=== PATIENT | female | born 1995 | race Caucasian/White ===

== ENCOUNTER 2024-10-23 13:57 | Outpatient (CLI) | payer MEDICAID, SELFPAY ==
[2024-10-28 14:58] LABS: HPV Source Cervix; HPV, High Risk by TMA Not Detected
== END 2024-10-23 13:58 | disposition home or self-care (01) ==
PROVIDERS: Visit Provider Physician Assistant
DX: N89.8 Other specified noninflammatory disorders of vagina (principal); R35.0 Frequency of micturition; Z12.4 Encounter for screening for malignant neoplasm of cervix
CPT/HCPCS: 80061; 82947; 87086; 87624; 87625; 88141; 88142

== ENCOUNTER 2024-10-30 07:50 | Outpatient (CLI) | payer MEDICAID, SELFPAY | END 2024-10-30 07:51 | disposition home or self-care (01) | LOC: NFLDREF 11-12 04:20 | PROVIDERS: Visit Provider Physician Assistant | DX: Z13.1 Encounter for screening for diabetes mellitus (principal); Z13.220 Encounter for screening for lipoid disorders | CPT/HCPCS: 80061; 82947 ==

== ENCOUNTER 2024-12-25 08:09 | Outpatient (CLI) | payer OTHER, SELFPAY ==
--- NOTE | 2024-12-25 08:15 | CRLHL7_ITS ---
For Patients: As a result of the Century Cures Act, medical imaging exams and procedure reports are released immediately into your electronic medical record. You may view this report before your referring provider. If you have questions, please contact your health care provider. OB ULTRASOUND LESS THAN 14 WEEKS, 12/25/2024 CLINICAL HISTORY: Dating, viability. COMPARISON: None. TECHNIQUE: Real time mahoney scale imaging of the fetus was performed transvaginally. FINDINGS: LMP: 10/25/2024. AURELIO by LMP: 08/01/2025. GA: 8 weeks 5 days. CRL: 2.1 cm, 8 weeks 5 days. AURELIO 08/01/2025. FHR: 176 bpm. GEST SAC: 3.7 cm, appears within normal limits. YOLK SAC: 3.5 mm, appears within normal limits. RIGHT OVARY: 3.5 x 2.1 x 3.1 cm, within normal limits. CL. LEFT OVARY: 3.3 x 1.9 x 1.9 cm, within normal limits. IMPRESSION: 1. Sonographic gestational age 8 weeks 5 days and sonographic due date 08/01/2025. 2. Subchorionic hemorrhage is present measuring 7 x 3 x 20 mm. Dale Lindsay M.D. Diagnostic Radiologist [email or web address] Transcribed: 11:15 am DW/Dictated by: Dale Lindsay MD @ 12/25/2024 10:05:00 AM (Electronically Signed)
== END 2024-12-25 08:10 | disposition home or self-care (01) ==
LOC: US 08:11
PROVIDERS: Visit Provider Physician Assistant
DX: Z34.91 Encounter for supervision of normal pregnancy, unspecified, first trimester (principal); O20.9 Hemorrhage in early pregnancy, unspecified; Z3A.08 8 weeks gestation of pregnancy
CPT/HCPCS: 76817; 83021; 86592; 86703; 86704; 86706; 86762; 86787; 86803; 86850; 86900; 86901; 87086; 87340; 87491; 87591

== ENCOUNTER 2024-12-25 09:34 | Outpatient (CLI) | payer OTHER, SELFPAY ==
[2024-12-25 13:35] LABS: Chlamydia DNA Amplified* NOT DETECTED (No Detected); GC DNA Amplified* NOT DETECTED (No Detected)
== END 2024-12-25 09:35 | disposition home or self-care (01) ==
PROVIDERS: Visit Provider Physician Assistant
DX: Z34.81 Encounter for supervision of other normal pregnancy, first trimester (principal); Z67.10 Type A blood, Rh positive
CPT/HCPCS: 83020; 83021; 85660; 86592; 86703; 86704; 86706; 86762; 86787; 86803; 86850; 86900; 86901; 87086; 87340; 87491; 87591

== ENCOUNTER 2025-03-17 12:49 | Outpatient (CLI) | payer OTHER, SELFPAY ==
--- NOTE | 2025-03-17 13:00 | CRLHL7_ITS ---
For Patients: As a result of the Century Cures Act, medical imaging exams and procedure reports are released immediately into your electronic medical record. You may view this report before your referring provider. If you have questions, please contact your health care provider. OB ULTRASOUND SURVEY LMP: 10/25/2024. AURELIO by LMP: 08/01/2025. GA: 20 w, 3 d. INDICATION: anatomic survey. TECHNIQUE: Real time mahoney scale imaging of the fetus was performed. Transabdominal. position: Breech. Cervix: Visualized. Technique: Transabdominal. Length of closed cervix: 3.0 cm. Placenta/cord: Anterior. Technique: Transabdominal. Placenta tip to internal OS: 3.9 cm. Umbilical Cord: 3-vessel cord. Amniotic Fluid: 3.3 cm SDP (greater than/equal to: 2- less than 8 cm). SURVEY: Observed Structures. Calvarium/Spine: Cerebellum: 2.1 cm, 20 w 6 d. Cisterna Magna: 6.1 mm. Nuchal Fold: 4.9 mm. Lateral Ventricle: -. CSP: Yes. Midline Falx: Yes. Choroid Plexus: Yes. Spine: Yes. Abdomen: Stomach: Yes. Abd Cord Insertion: Yes. Urinary Bladder: Yes. Kidneys: Yes. Diaphragm: Yes. Face: Nose/lips: Yes. Orbital view: Yes. Profile: Yes. Limbs: Upper Extremities: Yes. Lower Extremities: Yes. Hands: Yes. Feet: Yes. Vascular: 4-Chamber Heart: Yes. LVOT: Yes. RVOT: Yes. 3VV: Yes. 3VTV: Yes. BPD: 4.6 cm. 20 w, 0 d, 30.2 percent. HC: 17.7 cm. 20 w, 1 d, 31.3 percent. AC: 15.7 cm. 20 w, 6 d, 56.6 percent. FL: 3.4 cm. 20 w, 4 d, 46.8 percent. FL/AC ratio: 21.5 percent. HC/AC ratio: 1.1. heart rate: 150 bpm. age by this US: 20 w, 3 d. AURELIO by this US: 08/01/2025. EFW: 366.1 g. Weight: - lbs, 13 oz. Percentile by AURELIO: 56.2 percent. IMPRESSION: 1. Concordance of clinical and sonographic dating. 2. The nasal bone measures 4.6 mm which is at the lower limits of normal. Maternal medicine level 2 evaluation recommended. 3. The renal pelvis measures 2.8 mL on the left and 3.3 mm on the right which is considered within normal limits. 4. Prominent vascularity deep to the placenta at the placenta uterine interface. Again, this should be followed up with maternal medicine. 5. Remainder of the anatomic survey normal. Dale Lindsay M.D. Diagnostic Radiologist [email or web address] DSM/santos JR/Dictated by: Dale Lindsay MD @ 03/17/2025 10:18:00 PM (Electronically Signed)
== END 2025-03-17 12:50 | disposition home or self-care (01) ==
LOC: US 12:49
PROVIDERS: Visit Provider Obstetrics & Gynecology
DX: Z34.92 Encounter for supervision of normal pregnancy, unspecified, second trimester (principal); O35.9XX0 Maternal care for (suspected) fetal abnormality and damage, unspecified, not applicable or unspecified; Z3A.20 20 weeks gestation of pregnancy
CPT/HCPCS: 76805

== ENCOUNTER 2025-05-12 08:31 | Outpatient (CLI) | payer OTHER, SELFPAY | END 2025-05-12 08:32 | disposition home or self-care (01) | LOC: NFLDREF 05-15 07:00 | PROVIDERS: Visit Provider Obstetrics & Gynecology | DX: Z34.83 Encounter for supervision of other normal pregnancy, third trimester (principal) | CPT/HCPCS: 86592 ==

== ENCOUNTER 2025-06-25 09:35 | Outpatient (CLI) | payer OTHER, SELFPAY | END 2025-06-25 09:36 | disposition home or self-care (01) | LOC: NFLDREF 06-30 07:15 | PROVIDERS: Referring Provider Obstetrics & Gynecology; Visit Provider Obstetrics & Gynecology | DX: D50.9 Iron deficiency anemia, unspecified (principal); Z34.93 Encounter for supervision of normal pregnancy, unspecified, third trimester | CPT/HCPCS: 82728 ==

== ENCOUNTER 2025-07-09 10:16 | Outpatient (CLI) | payer OTHER, SELFPAY ==
[2025-07-10 11:12] LABS: Strep B DNA Probe Negative (Negative)
[2025-07-10 12:52] LABS: Strep B Susceptibility Needed? No
== END 2025-07-09 10:17 | disposition home or self-care (01) ==
LOC: NFLDREF 10:17
PROVIDERS: Visit Provider Physician Assistant
DX: Z34.93 Encounter for supervision of normal pregnancy, unspecified, third trimester (principal)
CPT/HCPCS: 87081; 87653

== ENCOUNTER 2025-07-30 05:32 | Inpatient (IN) | payer OTHER, SELFPAY ==
[2025-07-30] VITALS (39 sets, daily range): BP systolic 98–127; BP diastolic 55–79; PULSE 64–95; RESP 16; TEMP 36.4–36.7; O2SAT 87–100; BMI 25.7
[2025-07-30 06:18] LABS: Hematocrit* 33.8 % (33.0-51.0); Hemoglobin* 11.3 gm/dL (12.0-16.0); Immature Granulocytes Abs Auto 0.02 K/uL (0.00-0.30); Immature Granulocytes Pct Auto 0.2 %; Mean Corpuscular HGB Conc 33 gm/dL (32-36); Mean Corpuscular Hemoglobin 30 pg (26-34); Mean Corpuscular Volume 90 fL (80-100); RDW Coefficient of Variation % 13.3 % (11.5-15.5); Red Blood Count* 3.75 m/uL (4.00-5.20); White Blood Count* 10.54 K/uL (4.50-11.00)
[2025-07-30 06:25] LABS: Lymphocytes Absolute Auto 1.00 K/uL (0.90-2.90); Slide Review Reflex No
[2025-07-30] MEDS: LACTATED RINGERS 1000 ML 1,000 ML 999 ML IV ×2 (08:13→09:19)
[2025-07-30] MEDS: ROPIVACAINE 0.2% 100 ml 100 ML 12 MG EPIDURAL (09:20)
[2025-07-30] MEDS: LIDOCAINE 2% (PF) 5 ML VIAL EPIDURAL (09:20)
--- NOTE | 2025-07-30 09:59 | PM.ANBPRC ---
[facility] Medical History Hyperlipidemia ?E78.5 - Hyperlipidemia, unspecified (ICD-10) Presence of Mirena IUD ?Z97.5 - Presence of (intrauterine) contraceptive device (ICD-10) History of vaginal delivery Family History Father Heart disease High cholesterol Mother High blood pressure Social History (Updated 07/16/25 @ 09:45 by Kenyatta Diaz MD) Narrative: Lives in [place] with and son. Occupation: Director of daily operations. Marital status: . Spiritism/cultural needs: no. Chemical or radiation exposure: no. Pre- tobacco use: no. Pre- alcohol use: no. Current tobacco use: no. Current alcohol use: no. Recreational drug use: no. Dietary restrictions: no. Blood transfusion acceptable in an emergency: yes. PSYCHOSOCIAL HISTORY: History of depression or currently depressed: Denies. Current or past physical, emotional, or sexual mistreatment: Denies. Problems that will make it hard to make it to appointments: Denies. What is your current living situation?: I presently have a place to live Problems where you live: no known problems In the past 12 months, utilities in danger of being shut off: no In past 12 months, lack of transportation kept you from medical appts, meetings, work, or getting things needed for daily living: no In the past 12 mos, have been you worried that your food would run out before you had money to buy more?: never true In the past 12 mos, the food you bought just didn't last and you didn't have money to buy more?: never true Smoking Status: Former smoker How often does anyone, including family, friends and others, physically hurt you: never How often does anyone, including family, friends and others, insult or talk down to you: never How often does anyone, including family, friends and others, threaten you with harm: never How often does anyone, including family, friends and others, scream or curse at you: never Meds Home Medications and Allergies Home Medications ?Medication ?Instructions ?Recorded ?Confirmed ?Type 40-iron fum 27 mg 1 cap PO 11/10/24 07/29/25 History iron-folic acid 800 mcg-dha 250 mg capsule ( Multi-DHA (algal oil)) ferrous sulfate 325 mg (65 mg 325 mg PO QMWF #30 tabs 05/12/25 07/30/25 Rx iron) tablet Allergies Allergy/AdvReac Type Severity Reaction Status Date / Time No Known Drug Allergies Allergy Verified 07/29/25 10:10 Results Labs Labs: Laboratory Results - last 24 hr 07/30/25 06:11 WBC 10.54 RBC 3.75 L Hgb 11.3 L Hct 33.8 MCV 90 MCH 30 MCHC 33 RDW Coeff of Hang 13.3 Plt Count 171 Neut % (Auto) 83.6 H Lymph % (Auto) 9.7 L Lipscomb % (Auto) 6.1 Eos % (Auto) 0.3 Baso % (Auto) 0.1 Neut # (Auto) 8.80 H Lymph # (Auto) 1.00 Lipscomb # (Auto) 0.60 Eos # (Auto) 0.03 Baso # (Auto) 0.01 Abs Immat Gran (auto) 0.02 Imm/Tot Granulo (auto) 0.2 Blood Type A Positive Antibody Screen NEGATIVE Vital Signs Vital Signs: Last Vital Signs Temp 97.9 F 07/30/25 08:15 Pulse 70 07/30/25 09:58 Resp 16 07/30/25 04:38 BP 119/74 07/30/25 09:58 Pulse Ox 93 07/30/25 09:55 Weight: 68.039 kg Height: 162.56 cm Anesthesia Procedures Epidural Insertion Patient Location: OB Start Time: 09:15 Stop Time: 09:50 Start Date: 07/30/25 Stop Date: 07/30/25 Reason for Block: procedure for pain Patient Position: sitting Performed By: Parul Graham Preanesthetic Checklist: IV checked, site marked, risks and benefits discussed, monitors and equipment checked, pre-op evaluation, timeout performed and anesthesia consent Prep: chlorhexidine gluconate Monitoring: blood pressure monitoring, continuous pulse oximetry and heart rate Approach: midline Vertebral Space: lumbar (1-5) Epidural Technique: JOSE GUADALUPE saline Needle Type: Tuohy needle Injection Technique: continuous catheter Needle gauge: 17 Needle Length (cm): 10 cm Needle Insertion Depth (cm): 5 Catheter Gauge: 19 Catheter Type: multi-orifice Catheter at skin depth (cm): 14 Test Dose Result: negative and lidocaine 1.5% with epinephrine 1 to 200,000
[2025-07-30] MEDS: OXYTOCIN 30 unit/500 ML in NS 30 UNIT/500 ML BAG 300 UNIT IVPB (12:17)
--- NOTE | 2025-07-30 12:34 | P.LDBA_ITS ---
Subjective History of Present Illness Date Seen: 07/30/25 Narrative: Patient is being admitted to Labor and Delivery for spontaneous labor. She is a 30 year old at 39.5 weeks gestation. Her full history and physical was dictated by Dr. Diaz on 07/16. Please see this for details. She presented at 4cm/75%/-2. Membrane intact. Regular, painful contractions every Q 2-3 minutes. Specific Issues/Plans Partner: Sami H&P: 07/16 Dr. Diaz Son RJ, 5 yo # Sister has a child with Down Syndrome - NIPT recommended, drawn 03/17: low risk for aneuploidy #?Prominent vascularity at uteroplacental interface on tech report - f/u radiology read. No RF for PAS. # CF carrier identified on [place] - pt notified via phone on 04/13 - assessment is low risk - considering this as her last baby - IUD # Hep B non-immune - s/p Booster 02/19 # anemia, hemoglobin 9.8 at 28 weeks Ferrous sulfate 325 mg QOD Repeat at 34 weeks: 10.3, continue oral iron Imaging: - f/u radiology read. Visualized anatomy normal aside from hypoplastic nasal bone. EFW 56%ile - BPD 30%ile, HC 31%ile, AC 57%ile, FL 47%ile. Cx 3.0cm. Anterior placenta, no previa/LL, 3 vessel cord. SDP 3.3cm. Level II: EFW 45%tile, AC 46%tile. SDP 6.1 cm. Li at 25 weeks 3 days gestation age by LMP consistent with 8 week ultrasound. No anomalies commonly detected by ultrasound were identified in the detailed anatomy survey. Growth parameters an estimated weight were consistent. The amniotic fluid volume appeared normal. On trans abdominal imaging, the c ervix appeared long and closed. 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 Patient requested AROM after epidural - CNRA notified that patient desires epidural - Cat I strip OB Exam Physical Exam Vital signs: Temp Pulse Resp BP Pulse Ox 98 F 77 16 110/63 93 07/30/25 10:19 07/30/25 12:19 07/30/25 04:38 07/30/25 12:19 07/30/25 09:55 Narrative: Physical exam: General: No acute distress Psych: Alert and oriented x3, full affect HEENT: Normocephalic, atraumatic Lungs: Unlabored breathing Neuro: No focal deficit. Mentating appropriately Pelvic exam: 6/90/-1, soft, anterior
--- NOTE | 2025-07-30 12:35 | W.PM.VAGDEL1 ---
Procedure Delivery date: 07/30/25 Procedure Done: Global Narrative: The patient is a 30 year-old admitted on 07/30/25 at 39 and 5/7 weeks gestation for spontaneous labor. GBS negative Labor Analgesia: Epidural Pitocin: Only for active 3rd stage management SROM: 07/30 at 0958, with copious amount of clear fluid Complete: 07/30 at 1107 Pushin/16 at 1114 heart tones during second stage were II with variable decelerations during pushing with spontaneous recovery with cessation of pushing. Moderate variability throughout. At 1213 a viable female infant delivered in vertex OA presentation over intact via spontaneous vaginal delivery. The 's body was delivered in the usual manner without difficulty. The was placed on maternal abdomen. The cord was clamped and cut after a 30-60 second delay. The nose and mouth were bulb suctioned. weight: 3530 g. 9 at 1 minute and 9 at 5 minutes. Shoulder dystocia: No. Nuchal cord: No Placenta delivered spontaneously and complete at 1218 with a 3-vessel cord. Placenta examined and noted to be complete. Placenta was not sent to pathology. The cervix and vagina were inspected for lacerations. Laceration(s): 2nd degree, repaired with 2-0 Vicryl in continue manner Complications: None Estimated blood loss: 100 cc Notably, patient had 1300 cc of amniotic fluid expressed during pushing delivery. Sponge and needles counts are correct. Mother and were stable at the time of this note.
[2025-07-30] MEDS: CALCIUM CARBONATE 500 MG CHEW PO (20:22)
[2025-07-31 00:08] VITALS: BP 118/68; PULSE 61; RESP 16; TEMP 36.8; O2SAT 98
[2025-07-31] MEDS: ACETAMINOPHEN 500 MG TABLET 1000 MG PO (00:18)
[2025-07-31 03:59] VITALS: BP 129/76; PULSE 58; RESP 16; TEMP 36.6; O2SAT 97
[2025-07-31 06:31] LABS: Hemoglobin* 10.7 gm/dL (12.0-16.0)
[2025-07-31 07:00] VITALS: BP 100/65; PULSE 83; RESP 16; TEMP 36.4; O2SAT 96
[2025-07-31] MEDS: DOCUSATE SODIUM 100 MG CAPSULE PO (09:53)
[2025-07-31 09:54] VITALS: TEMP 36.4
[2025-07-31] MEDS: IBUPROFEN 600 MG TABLET PO (09:54)
--- NOTE | 2025-07-31 12:40 | PM.OBDSVD1 ---
DS: Providers Provider Date Seen: 07/31/25 Date of admission: 07/30/25 05:32 Primary care physician: Not a Local Provider Admitting Clinician: Eneida Fontanez MD Attending Physician on discharge: Poonam Li CNM Date of Discharge: 07/31/25 DS: Diagnosis Discharge Diagnosis (1) Lactating mother: Status: Acute (2) care following vaginal delivery: Status: Acute Exam Narrative: Exam Narrative: GENERAL APPEARANCE:? normal affect, alert, no distress MOOD:? appropriate CHEST:? clear to auscultation HEART:? regular rate and rhythm ABDOMEN:? soft, non-tender the uterine fundus is 1 cm At Umbilicus, Midline and is appropriate for the stage of recovery. PERINEUM:? not assessed. no c/o EXTREMITIES:? normal and no edema Const: Vital Signs, click to edit/add: Vital Signs - 24 hr 07/30/25 12:49 07/30/25 12:49 07/30/25 13:04 Temperature Pulse Rate 74 75 Pulse Rate [Pulse Oximeter] Respiratory Rate 16 Blood Pressure 108/60 107/68 Blood Pressure [Le ft Arm] Pulse Oximetry 93 Oxygen Delivery Me thod 07/30/25 13:04 07/30/25 13:04 07/30/25 13:20 Temperature Pulse Rate 67 Pulse Rate [Pulse Oximeter] Respiratory Rate 16 16 Blood Pressure 115/60 Blood Pressure [Le ft Arm] Pulse Oximetry Oxygen Delivery Me thod 07/30/25 13:20 07/30/25 13:34 07/30/25 13:34 Temperature Pulse Rate 69 Pulse Rate [Pulse Oximeter] Respiratory Rate 16 16 Blood Pressure 111/64 Blood Pressure [Le ft Arm] Pulse Oximetry Oxygen Delivery Me thod 07/30/25 13:49 07/30/25 13:49 07/30/25 14:04 Temperature Pulse Rate 69 Pulse Rate [Pulse Oximeter] Respiratory Rate 16 Blood Pressure 106/61 111/64 Blood Pressure [Le ft Arm] Pulse Oximetry Oxygen Delivery Me thod 07/30/25 14:04 07/30/25 14:04 07/30/25 17:15 Temperature 97.8 F 98.1 F Pulse Rate 72 Pulse Rate [Pulse Oximeter] 82 Respiratory Rate 16 16 Blood Pressure Blood Pressure [Le ft Arm] 101/66 Pulse Oximetry 97 Oxygen Delivery Me thod Room Air 07/30/25 20:44 07/31/25 00:08 07/31/25 03:59 Temperature 97.7 F 98.2 F 97.8 F Pulse Rate Pulse Rate [Pulse Oximeter] 76 61 58 L Respiratory Rate 16 16 16 Blood Pressure Blood Pressure [Le ft Arm] 115/68 118/68 129/76 Pulse Oximetry 97 98 97 Oxygen Delivery Me thod Room Air Room Air Room Air 07/31/25 07:00 07/31/25 09:54 Temperature 97.6 F 97.6 F Pulse Rate Pulse Rate [Pulse Oximeter] 83 Respiratory Rate 16 Blood Pressure Blood Pressure [Le ft Arm] 100/65 Pulse Oximetry 96 Oxygen Delivery Me thod Room Air OB - DS: Summary Hospital Course Hospital Course: Mariah is a 30 y.o. G 2 P 2 now who was admitted to L & D for labor. ?She had a NVD that was uncomplicated. The patient feels well. ?The pain is well controlled with current medications. ?She has no new complaints. ?She is breast feeding and reports things are going well. the patient has done well.? Vitals have been stable.? She has remained afebrile.? Has a good appetite, is tolerating a general diet. ?She is voiding without difficulty.? She is passing gas and has not had a bowel movement.? She is ambulating and denies any dizziness.? Has small amount of rubra lochia. . Problems: none Discharge home with baby.? Follow up in 2 weeks and 6 weeks.? , may see if needed? Hgb 10.7. continue with with iron? Labs WNL or stable with trending? For pain control of perineum, breast and pelvic pain, take 600 mg Ibuprofen every 6 hours as needed by mouth or 1000 mg acetaminophen (Tylenol) every 6 hours by mouth as needed. You can alternate these so you are taking something every 3 hours as needed. A heating pad can also be used for your abdomen or breasts. You may also take docusate sodium up to twice daily to soften your stools and help to prevent constipation. You may wean off of it when your stools return to normal.? Peripartum Data delivery method: Vaginal Laceration description: Perineal - 2nd Degree complications: none Gender: Female Infant Discharge Plan: Home Status at Discharge Functional status at discharge: independent ambulation Time Spent with Patient Time attestation: Total time spent providing and/or coordinating discharge services: Time spent: Less than 30 minutes Discharge Plan Discharge Disposition: Home, Self-Care Date of Admission: 07/30/25 05:32 Attending Provider on Discharge: Poonam Li Primary Care Provider: Provider,Not a Local Condition: Stable Anticipated Discharge Date/Time: 07/31/25 16:00 Discharge Medications: New acetaminophen 500 mg Tablet 1,000 mg PO Q6H PRN (Reason: pain/fever) Qty: 0 0RF docusate sodium 100 mg Capsule 100 mg PO DAILY Qty: 0 0RF ibuprofen 600 mg Tablet 600 mg PO Q6H PRNQty: 0 0RF Lanolin (HPA) 100 % Cream 1 applic topical Q1H PRNQty: 0 0RF Continued Multi-DHA (algal oil) 27mg iron- 800 mcg-250 mg capsule 1 cap PO DAILY PRN ferrous sulfate 325 mg (65 mg iron) tablet 325 mg PO QMWF Qty: 30 0RF Discharge Orders: Discharge Order (Routine); Ordered 07/31/25 Ordered By: Poonam Li Patient Education: OB Vaginal/Breast Feeding Activity Level: Activity as Tolerated Discharge Diet: High Fiber Follow Up Appointments: Provider,Not a Local [Primary Care Provider, Family Practice] Forms: MyHealth Info Instructions
--- NOTE | 2025-07-31 13:34 | PM.ANPOST ---
Post Anesthesia Note Post Anesthesia Note Patient seen: Inpatient Respiratory Status: adequate Cardiovascular Status: adequate Mental Status: baseline Pain: adequate Temp: baseline Anesthetic awareness: N/A Complications: none Follow care: none
[2025-07-31 13:50] VITALS: BP 110/70; PULSE 82; RESP 16; TEMP 36.5; O2SAT 96
== END 2025-07-31 15:30 | disposition home or self-care (01) | DRG 807 ==
LOC: OB OUT 05:32 → OB 05:32
PROVIDERS: Obstetrics & Gynecology; Admitting Provider Obstetrics & Gynecology; Visit Provider Obstetrics & Gynecology
DX: O99.02 Anemia complicating childbirth (principal); Z37.0 Single live birth; D64.9 Anemia, unspecified; O70.1 Second degree perineal laceration during delivery; Z82.79 Family history of other congenital malformations, deformations and chromosomal abnormalities; Z14.1 Cystic fibrosis carrier; Z3A.39 39 weeks gestation of pregnancy
CPT/HCPCS: 01967; 36415; 85018; 85025; 86592; 86850; 86900; 86901; A9270; J2795; J7120